=== PATIENT | male | born 1955 | race Caucasian/White ===

== ENCOUNTER 2020-01-24 11:45 | Outpatient (CLI) | payer OTHER, SELFPAY ==
[2020-01-24 17:33] LABS: Basophils # 0.1 10^3/uL (0.0-0.1); Basophils % 1.6 %; Eosinophils # 0.2 10^3/uL (0.0-0.8); Eosinophils % 2.5 %; Hemoglobin 13.4 g/dL (11.7-16.6); Lymphocytes # 1.5 10^3/uL (0.8-4.8); Lymphocytes % 23.8 %; Mean Corpuscular HGB Conc 31.9 g/dL (30.0-36.0); Mean Corpuscular Hemoglobin 27.8 pg (28.0-34.0); Mean Corpuscular Volume 87.1 fL (80-94); Mean Platelet Volume 9.5 fL (7.4-10.4); Monocytes # 0.5 10^3/uL (0.2-0.9); Monocytes % 7.4 %; Neutrophils # 4.1 10^3/uL (1.8-7.7); Neutrophils % 63.8 %; Nucleated Red Blood Cells % 0 %; Platelet Count 769 10^3/cmm (130-400); Red Blood Count 4.82 10^6/uL (4.1-5.3); Red Cell Distribution Width 13.2 % (12.1-15.1); White Blood Count 6.4 10^3/uL (4.0-10.0)
[2020-01-24 19:38] LABS: Alanine Aminotransferase 9 U/L (0-41); Albumin Level 4.3 g/dL (3.5-5.2); Alkaline Phosphatase 79 IU/L (40-130); Anion Gap 16.9 (5-19); Aspartate Amino Transferase 23 U/L (0-40); Blood Urea Nitrogen 17 mg/dL (8-23); Calcium 8.7 mg/dL (8.5-10.5); Carbon Dioxide 26 mmol/L (22-29); Chloride 103 mmol/L (98-107); Globulin 2.3 g/dL (1.3-4.6); Glucose 67 mg/dL (65-115); Osmolality Calculated 289 mOsm/kg (285-295); Potassium 3.9 mmol/L (3.5-5.1); Sodium 142 mmol/L (136-145); Total Bilirubin 0.3 mg/dL (0.15-1.2); Total Protein 6.6 g/dL (6.6-8.7)
== END 2020-01-24 11:46 | disposition home or self-care (01) ==
LOC: ONCMED 16:50
PROVIDERS: Family Provider Internal Medicine; PCP Internal Medicine; Visit Provider Internal Medicine Medical Oncology
DX: C67.8 Malignant neoplasm of overlapping sites of bladder (principal)
CPT/HCPCS: 80053; 85025

== ENCOUNTER 2020-02-13 08:48 | Outpatient (CLI) | payer OTHER, SELFPAY ==
--- NOTE | 2020-02-13 09:41 | CT_ITS ---
WS: [id number] CT CHEST, ABDOMEN, AND PELVIS TECHNIQUE: Contrast-enhanced CT of the chest, abdomen, and pelvis with coronal and sagittal reformatt ed images. CLINICAL INFORMATION: BLADDER CA COMPARISON: CT abdomen pelvis 07/07/2019 and 12/20/2018 DLP: 2385.[address] scans at [facility] use at least one of these dose optimization techniques: automat ed exposure control; mA and/or kV adjustment per patient size (includes targeted exams where dose is matched to clinical indication); or iterative reconstruction. CT CHEST: Normal caliber thoracic aorta. No mediastinal or hilar lymphadenopathy. Normal endobronchial tree. No suspicious parenchymal abnormalities. Lungs well aerated. No acute pulmonary infiltrates. No axillar y lymphadenopathy. Partially calcified soft tissue lesion in the left lower back posterior laterally measuring 2.7 CM. This most likely represents chronic incidental sebaceous cyst. CT ABDOMEN AND PELVIS: Prior postoperative changes radical cystoprostatectomy with ileal conduit. Liver is normal in appeara nce. Normal gallbladder. Normal spleen. Pancreas appears normal. Adrenal glands appear normal. Incide ntal left renal cysts. Stable 16 mm right renal cortical lesion is unchanged and indeterminant with i ncreased attenuation. Additional incidental stable renal cysts. Normal caliber abdominal aorta. Adren al glands are normal. Pancreas is normal. No periaortic or peritoneal lymphadenopathy. Small right common iliac artery aneurysm measuring 2.1 cm unchanged. Normal caliber abdominal aorta. CT/CT chest abd pel w con* IMPRESSION: 1. No adenopathy in the chest abdomen or pelvis. 2. No suspicious parenchymal abnormalities in the chest. 3. Prior postoperative changes radical cystoprostatectomy with ileal conduit i s stable in appearance. 4. Stable indeterminant exophytic right renal lesion measuring 16 mm with incr eased attenuation. Recommend continued surveillance. 5. Incidental stable hepatic and renal cysts. 6. Stable 2.2 cm right common iliac artery aneurysm.
[2020-02-13] MEDS: iohexol 300 mg/mL 50 mL Btl PO (10:35)
[2020-02-13] MEDS: iohexol 300 mg/mL 100 mL Btl IV (10:51)
== END 2020-02-13 08:49 | disposition home or self-care (01) ==
LOC: RADWPI 08:49
PROVIDERS: Family Provider Internal Medicine; PCP Internal Medicine; Visit Provider Internal Medicine Medical Oncology
DX: C67.9 Malignant neoplasm of bladder, unspecified (principal); I72.3 Aneurysm of iliac artery; N28.9 Disorder of kidney and ureter, unspecified; N28.1 Cyst of kidney, acquired; K76.89 Other specified diseases of liver
CPT/HCPCS: 71260; 74177; Q9967

== ENCOUNTER 2020-02-15 15:37 | Outpatient (CLI) | payer OTHER, SELFPAY ==
--- NOTE | 2020-02-17 12:25 | ONC FU_ITS ---
Dr. Parada Patient Follow-Up Note Patient: Tejinder Crook Unit #: [id number]: 1955 Dicatated By: Dale Parada M.D.Date of Visit:February 15, 2020 Onc Med Follow-up/Prog Note Chief Complaint: Bladder cancer. 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 He had been seen by Dr. Reddy in May 2018 after having 2 episodes of gross hematuria. His outpatient cystoscopy was suspicious for neoplasm. He then underwent cystoscopy with TURBT on 06/20/2018. He was found to have tumor in the posterolateral bladder wall, but most of the tumor appeared to be involving a bladder diverticulum. Pathology showed high grade urothelial carcinoma with invasion of the submucosa. There was no evidence of invasion into a small amount of muscularis propria included in the specimen. It was noted by Dr. Reddy that his CT scan appeared to show nodularity extending outside the diverticulum. On 08/04/2018 he underwent repeat cystoscopy for further biopsies of the tumor. Pathology showed grade 4//4 papillary carcinoma with invasion into the muscularis propria. I had seen him initially on 09/09/2018. Subsequent to that visit, he had further urology consultation with Dr. Huey Brown at the [facility]. He was recommended to undergo neoadjuvant chemotherapy with modified MVAC in preparation for radical cystectomy. He proceeded with cycle 1 of modified MVAC on 11/14/2018, with cycle 2 on 11/29/2018, and with cycle 3 on 12/12/2018. On 01/17/2019 he underwent radical cystoprostatectomy with ileal loop at the [facility]. According to Dr. Reddy's note, there was no residual tumor identified. His postoperative course was complicated by clostridium difficile colitis, but he did have gradual recovery. He was then followed on observation/expectant management. His other medical illnesses include hypertension, GERD, and obstructive sleep apnea. He also has a history of adjustment disorder. He has a history of smoking 1 pack of cigarettes daily for 15 year. He quit smoking 27 years ago. He had heavy alcohol use in the range of 30 years ago, but he subsequently cut down and he quit drinking at least 4-5 years ago. INTERIM HISTORY: Surveillance CT of the abdomen/pelvis on 07/07/2019 showed interval changes related to the cystoprostatectomy with ileal loop. There were 2 low-attenuation masses arising from the cortex of the right kidney, the largest measuring 16 mm. There were several associated low-attenuation nodules in the left kidney, largest measuring 12 mm. There was no evidence for recurrence of the urothelial cancer. Surveillance CT scans on 02/13/2020 showed no adenopathy or other evidence of recurrent/metastatic disease in the chest, abdomen, or pelvis. An indeterminate exophytic right renal lesion measuring 16 mm appeared stable. Continued surveillance was recommended. 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 He is seen for a followup visit. He has been feeling all right. He says his energy is just mediocre. He is doing light work. ECOG score is 1. He has good appetite. He has not had fever. He has sweating every night, but that is chronic. He has no shortness of breath, cough, or chest pain. He has no GI complaints. His urostomy is functioning well and his urine looks clear. He has some age-related joint pain, which is unchanged. He has occasional headache. He reports having some numbness/tingling in his hands. Medications: Dana Allergy 1 Tablet (of 180 mg) Oral daily PRN, AmLODIPine Besylate 1 Tablet (of 10 mg) Oral daily, Aspirin 1 Tablet (of 81 mg) Oral daily, Calcium + D3 1 Tablet (of 600-200 mg - Units) Oral daily, Pantoprazole Sodium 1 Tablet (of 40 mg) Tablet, enteric coated Oral daily, Vitamin C 1 Capsule (of 500 mg) Oral daily, Vitamin E 1 Capsule (of 100 Units) Oral daily Allergies: bee stings Review of Systems: Constitutional - He is generally feeling good. He does work in and around the house. His appetite is good and weight is stable. No fever, chills or hot flashes. He has night sweats. ECOG score is 1, ENMT - No sinus congestion/drainage. No mouth sores. No sore throat or difficulty swallowing, Hematologic/Lymphatic - He bruises easily, Respiratory - No shortness of breath. No cough. No pleuritic pain or hemoptysis, Cardiovascular - No angina pain. No palpitations, Gastrointestinal - No nausea or vomiting. His heartburn is well managed with Pepcid. No diarrhea or constipation. No blood in the stool or black stools, Genitourinary (M) - He has a urostomy which is functioning well, Musculoskeletal - No joint or bone pain, Integumentary - No skin complications, Neurologic - No headache or dizziness. He has chronic numbness in his right fingers, Psychiatric - No anxiety or depression. No insomnia. Vital Signs: Performed on February 15, 2020 16:00 Height - 68.00 in Weight - 193.8 lbs (HIGH) BSA - 2.02 sq.m BMI - 29.47 Temperature - 98.6 F Pulse - 77 /min Respiration - 22 /min BP - 120/85 mm(hg) O2 Sat - 97 % Pain - 0 Physical Examination: Constitutional - He looks good generally, Eyes - Sclerae nonicteric. Conjunctivae clear, ENMT - No lesions noted in the oral cavity, Hematologic/Lymphatic - No cervical, clavicular, or axillary adenopathy, Respiratory - Lungs are clear, Cardiovascular - Heart rhythm is regular. There is no murmur, gallop, or rub noted, Abdomen - Soft. Liver and spleen are not enlarged. There is no abdominal mass or ascites noted and there is no inguinal adenopathy, Extremities - No edema, Neurologic - No focal neurologic deficits noted. Lab/Imaging: Test performed on January 24, 2020 11:45 Sodium 142 mmol/L Potassium 3.9 mmol/L Chloride 103 mmol/L CO2 26 mmol/L Anion Gap 16.9 BUN 17 mg/dL Creatinine 1.2 mg/dL Cr Clearance (Est) 77.5700 mL/min eGFR 61.0 mL/min Glucose 67 mg/dL Calcium 8.7 mg/dL Protein, Total 6.6 g/dL Albumin 4.3 g/dL Globulin 2.3 g/dL Bilirubin, Total 0.3 mg/dL ALT (SGPT) 9 U/L AST (SGOT) 23 U/L Alkaline Phosphatase 79 IU/L WBC 6.4 10 3/uL RBC 4.82 10 6/uL HGB 13.4 g/dL HCT 42.0 % MCV 87.1 fL MCH 27.8 pg MCHC 31.9 g/dL RDW 13.2 % Platelet Count 769 10 3/cmm MPV 9.5 fL Neutrophils 4.1 10 3/uL Lymphocytes 1.5 10 3/uL Monocytes 0.5 10 3/uL Eosinophils 0.2 10 3/uL Basophils 0.1 10 3/uL Neutrophil % 63.8 % Lymphocyte % 23.8 % Monocyte % 7.4 % Eosinophil % 2.5 % Basophils % 1.6 % Impression: 1. 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 The majority of his tumor appeared to be involving a bladder diverticulum, and the CT scan reportedly showed findings suspicious for nodularity outside the diverticulum. 2. He underwent cystoscopy with TURBT on 06/20/2018 and on 08/04/2018. His other medical illnesses include: 3. Hypertension. 4. GERD. 5. Obstructive sleep apnea. 6. Adjustment disorder. He was seen by Dr. Huey Brown at the [facility], and he was recommended to undergo neoadjuvant chemotherapy with modified MVAC in preparation for radical cystectomy. He proceeded with cycle 1 of modified MVAC on 11/14/2018, with cycle 2 on 11/29/2018, and with cycle 3 on 12/12/2018. He tolerated the chemotherapy well. On 01/17/2019 he underwent radical cystoprostatectomy with ileal loop at the [facility]. According to Dr. Reddy's note, there was no residual tumor identified. His postoperative course was complicated by clostridium difficile colitis, but he did have gradual recovery. He was then followed on observation/expectant management. During followup he has continued to have some fatigue, but he is otherwise doing well clinically. Thus far there has been no evidence of recurrence of the urothelial cancer. Plan: He remains on observation/expectant management for the bladder cancer. I will see him again with surveillance CT scans in 6 months. Signed By: Dale Parada M.D. <<Signature on File>>
== END 2020-02-15 15:38 | disposition home or self-care (01) ==
LOC: ONCMED 15:40
PROVIDERS: PCP Internal Medicine; Visit Provider Internal Medicine Medical Oncology
DX: Z08 Encounter for follow-up examination after completed treatment for malignant neoplasm (principal); Z85.51 Personal history of malignant neoplasm of bladder; I10 Essential (primary) hypertension; K21.9 Gastro-esophageal reflux disease without esophagitis; G47.33 Obstructive sleep apnea (adult) (pediatric); F43.20 Adjustment disorder, unspecified; Z92.21 Personal history of antineoplastic chemotherapy; Z90.6 Acquired absence of other parts of urinary tract; Z90.79 Acquired absence of other genital organ(s)
CPT/HCPCS: G0463

== ENCOUNTER 2020-03-06 08:36 | Outpatient (CLI) | payer OTHER, SELFPAY ==
--- NOTE | 2020-03-06 09:19 | XR_ITS ---
WS: [id number] XR chest 2V* [id number] REASON FOR EXAM: bladder cancer FINDINGS: Scoliotic curve convex to the right is seen. The heart and mediastinal interfaces are normal. The lung alba show no pneumonia, pleural effusion, pulmonary edema, or mass effect. The hilum and apices are normal. Comparison to July 19, 2019 with no interval changes. XR/XR chest 2V* [id number] IMPRESSION: Negative chest for acute pathology.
== END 2020-03-06 08:37 | disposition home or self-care (01) ==
LOC: RAD 09:08
PROVIDERS: PCP Internal Medicine; Visit Provider Urology
DX: C67.9 Malignant neoplasm of bladder, unspecified (principal)
CPT/HCPCS: 71046

== ENCOUNTER 2020-08-22 13:13 | Outpatient (CLI) | payer OTHER, SELFPAY ==
--- NOTE | 2020-08-22 | CT_ITS ---
WS: [id number] CT CHEST, ABDOMEN, AND PELVIS TECHNIQUE: Contrast-enhanced CT of the chest, abdomen, and pelvis with coronal and sagittal reformatt ed images. CLINICAL INFORMATION: BLADDER CANCER COMPARISON: CT February 13, 2020 DLP: 1523.[address] scans at [facility] use at least one of these dose optimization techniques: automat ed exposure control; mA and/or kV adjustment per patient size (includes targeted exams where dose is matched to clinical indication); or iterative reconstruction. CT CHEST: Normal caliber thoracic aorta. Proximal main pulmonary arteries are normal. No mediastinal or hilar l ymphadenopathy. Normal endobronchial tree. No suspicious intraparenchymal abnormalities. No acute pul monary infiltrates. No axillary lymphadenopathy. Partially calcified soft tissue lesion in the left l ower back posterior laterally measuring 2.7 CM likely sebaceous cyst. CT ABDOMEN AND PELVIS: Prior postoperative changes radical cystoprostatectomy with ileal conduit. Liver is normal in appeara nce. Normal gallbladder. Normal spleen. Pancreas appears normal. Adrenal glands appear normal. Incide ntal left renal cysts. Stable 16 mm right renal exophytic cortical lesion is unchanged and indeterminant with increased atte nuation. Additional incidental stable renal cysts. Normal caliber abdominal aorta. Adrenal glands are normal. Pancreas is normal. No periaortic or retroperitoneal lymphadenopathy. Small right common wes ac artery aneurysm measuring 2.1 cm unchanged. Normal caliber abdominal aorta. CT/CT chest abd pel w con* IMPRESSION: 1. No evidence of metastatic disease in the chest abdomen or pelvis. 2. No adenopathy in the chest abdomen or pelvis. 3. No suspicious intraparenchymal pulmonary abnormalities. 4. Stable prior postoperative changes radical cystoprostatectomy with ileal co nduit. 5. Unchanged 16mm exophytic right renal lesion with increased attenuation. Rec ommend continued annual surveillance. 6. Stable 2.2 cm right common iliac artery aneurysm. 7. Unchanged hepatic and renal cysts.
[2020-08-22 14:30] LABS: Basophils # 0.1 10^3/uL (0.0-0.1); Basophils % 1.6 %; Eosinophils # 0.2 10^3/uL (0.0-0.8); Eosinophils % 2.9 %; Hematocrit 41.1 % (42.0-52.0); Hemoglobin 12.9 g/dL (11.7-16.6); Lymphocytes # 1.5 10^3/uL (0.8-4.8); Lymphocytes % 20.4 %; Mean Corpuscular HGB Conc 31.4 g/dL (30.0-36.0); Mean Corpuscular Hemoglobin 26.3 pg (28.0-34.0); Mean Corpuscular Volume 83.9 fL (80-94); Mean Platelet Volume 9.5 fL (7.4-10.4); Monocytes # 0.6 10^3/uL (0.2-0.9); Monocytes % 7.9 %; Neutrophils % 66.8 %; Nucleated Red Blood Cells % 0 %; Platelet Count 875 10^3/cmm (130-400); Red Cell Distribution Width 14.1 % (12.1-15.1); White Blood Count 7.3 10^3/uL (4.0-10.0)
[2020-08-22 14:36] LABS: Alanine Aminotransferase 25 U/L (0-41); Albumin Level 4.5 g/dL (3.5-5.2); Alkaline Phosphatase 98 IU/L (40-130); Aspartate Amino Transferase 22 U/L (0-40); Blood Urea Nitrogen 17 mg/dL (8-23); Calcium 9.1 mg/dL (8.5-10.5); Carbon Dioxide 25 mmol/L (22-29); Chloride 106 mmol/L (98-107); Globulin 2.4 g/dL (1.3-4.6); Glomerular Filtration Rate 67.2 mL/min (90-130); Glucose 106 mg/dL (65-115); Osmolality Calculated 294 mOsm/kg (285-295); Sodium 141 mmol/L (136-145); Total Bilirubin 0.5 mg/dL (0.15-1.2); Total Protein 6.9 g/dL (6.6-8.7)
[2020-08-22] MEDS: iohexol 300 mg/mL 100 mL Btl IV (15:15)
== END 2020-08-22 13:14 | disposition home or self-care (01) ==
PROVIDERS: PCP Internal Medicine; Visit Provider Internal Medicine Medical Oncology
DX: C67.8 Malignant neoplasm of overlapping sites of bladder (principal); K76.89 Other specified diseases of liver; N28.1 Cyst of kidney, acquired; I72.3 Aneurysm of iliac artery
CPT/HCPCS: 71260; 74177; 80053; 85025

== ENCOUNTER 2020-10-09 13:57 | Outpatient (CLI) | payer OTHER, SELFPAY ==
[2020-10-09 14:29] LABS: Basophils # 0.2 10^3/uL (0.0-0.1); Basophils % 1.8 %; Eosinophils # 0.2 10^3/uL (0.0-0.8); Eosinophils % 2.3 %; Hematocrit 42.7 % (42.0-52.0); Hemoglobin 13.7 g/dL (11.7-16.6); Lymphocytes # 1.8 10^3/uL (0.8-4.8); Lymphocytes % 22.3 %; Mean Corpuscular HGB Conc 32.1 g/dL (30.0-36.0); Mean Corpuscular Hemoglobin 26.4 pg (28.0-34.0); Mean Corpuscular Volume 82.3 fL (80-94); Mean Platelet Volume 9.4 fL (7.4-10.4); Monocytes # 0.6 10^3/uL (0.2-0.9); Monocytes % 7.6 %; Neutrophils # 5.34 10^3/uL (1.8-7.7); Neutrophils % 65.5 %; Nucleated Red Blood Cells % 0 %; Platelet Count 876 10^3/cmm (130-400); Red Blood Count 5.19 10^6/uL (4.1-5.3); Red Cell Distribution Width 14.6 % (12.1-15.1); White Blood Count 8.2 10^3/uL (4.0-10.0)
[2020-10-09 15:56] LABS: Alanine Aminotransferase 21 U/L (0-41); Albumin Level 4.2 g/dL (3.5-5.2); Alkaline Phosphatase 86 IU/L (40-130); Anion Gap 12.9 (5-19); Aspartate Amino Transferase 23 U/L (0-40); Blood Urea Nitrogen 20 mg/dL (8-23); Calcium 9.1 mg/dL (8.5-10.5); Carbon Dioxide 25 mmol/L (22-29); Chloride 104 mmol/L (98-107); Globulin 2.6 g/dL (1.3-4.6); Glomerular Filtration Rate 67.2 mL/min (90-130); Glucose 96 mg/dL (65-115); Osmolality Calculated 288 mOsm/kg (285-295); Potassium 3.9 mmol/L (3.5-5.1); Sodium 138 mmol/L (136-145); Total Bilirubin 0.3 mg/dL (0.15-1.2); Total Protein 6.8 g/dL (6.6-8.7)
--- NOTE | 2020-10-13 13:09 | ONC FU_ITS ---
Dr. Parada Patient Follow-Up Note Patient: Tejinder Crook Unit #: [id number]: 1955 Dicatated By: Dale Parada M.D.Date of Visit:Oct 09, 2020 Onc Med Follow-up/Prog Note Chief Complaint: Bladder cancer. 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 He had been seen by Dr. Reddy in May 2018 after having 2 episodes of gross hematuria. His outpatient cystoscopy was suspicious for neoplasm. He then underwent cystoscopy with TURBT on 06/20/2018. He was found to have tumor in the posterolateral bladder wall, but most of the tumor appeared to be involving a bladder diverticulum. Pathology showed high grade urothelial carcinoma with invasion of the submucosa. There was no evidence of invasion into a small amount of muscularis propria included in the specimen. It was noted by Dr. Reddy that his CT scan appeared to show nodularity extending outside the diverticulum. On 08/04/2018 he underwent repeat cystoscopy for further biopsies of the tumor. Pathology showed grade 4//4 papillary carcinoma with invasion into the muscularis propria. I had seen him initially on 09/09/2018. Subsequent to that visit, he had further urology consultation with Dr. Huey Brown at the [facility]. He was recommended to undergo neoadjuvant chemotherapy with modified MVAC in preparation for radical cystectomy. He proceeded with cycle 1 of modified MVAC on 11/14/2018, with cycle 2 on 11/29/2018, and with cycle 3 on 12/12/2018. On 01/17/2019 he underwent radical cystoprostatectomy with ileal loop at the [facility]. According to Dr. Reddy's note, there was no residual tumor identified. His postoperative course was complicated by clostridium difficile colitis, but he did have gradual recovery. He was then followed on observation/expectant management. His other medical illnesses include hypertension, GERD, and obstructive sleep apnea. He also has a history of adjustment disorder. He has a history of smoking 1 pack of cigarettes daily for 15 year. He quit smoking 27 years ago. He had heavy alcohol use in the range of 30 years ago, but he subsequently cut down and he quit drinking at least 4-5 years ago. INTERIM HISTORY: CT of the abdomen/pelvis on 07/07/2019 showed interval changes related to the cystoprostatectomy with ileal loop. There were 2 low-attenuation masses arising from the cortex of the right kidney, the largest measuring 16 mm. There were several associated low-attenuation nodules in the left kidney, largest measuring 12 mm. There was no evidence for recurrence of the urothelial cancer. His CT scans on 02/13/2020 showed no adenopathy or other evidence of recurrent/metastatic disease in the chest, abdomen, or pelvis. An indeterminate exophytic right renal lesion measuring 16 mm appeared stable. Continued surveillance was recommended. 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 Surveillance CT scans on 08/22/2020 no evidence of metastatic disease in the chest abdomen or pelvis. A 16mm exophytic right renal lesion with increased attenuation appeared unchanged, continued surveillance recommended. A 2.2 cm right common iliac artery aneurysm appeared stable. He is seen for a followup visit. He has been feeling good generally, though his energy is just fair. His ECOG score is 1. Appetite is OK. He has not had fever. He has night sweating, that has been going on all his life. He has no shortness of breath, cough, or chest pain. He colonel he has no GI complaints. He has had no problems with his urostomy. For the past month he has been having some pain in his right lower back, but he thinks it is just due to stressed muscles. He does not complain of headache or dizziness. He has numbness in the median nerve distribution of the right hand. He has no other focal neurologic symptoms. Medications: Dana Allergy 1 Tablet (of 180 mg) Oral daily PRN, AmLODIPine Besylate 1 Tablet (of 10 mg) Oral daily, Aspirin 1 Tablet (of 81 mg) Oral daily, Calcium + D3 1 Tablet (of 600-200 mg - Units) Oral daily, Pantoprazole Sodium 1 Tablet (of 40 mg) Tablet, enteric coated Oral daily, Rosuvastatin Calcium 1 (40 mg) Tablet Oral at bedtime, Vitamin C 1 Capsule (of 500 mg) Oral daily, Vitamin E 1 Capsule (of 100 Units) Oral daily Allergies: bee stings Vital Signs: Performed on Oct 09, 2020 15:19 Height - 68.00 in Weight - 197.6 lbs (HIGH) BSA - 2.03 sq.m BMI - 30.05 (HIGH) Temperature - 98.0 F (LOW) Pulse - 76 /min Respiration - 16 /min BP - 125/84 mm(hg) O2 Sat - 96 % Pain - 0 Physical Examination: Constitutional - He looks good generally, Eyes - Sclerae nonicteric. Conjunctivae clear, ENMT - No lesions noted in the oral cavity, Hematologic/Lymphatic - No cervical, clavicular, or axillary adenopathy, Respiratory - Lungs are clear, Cardiovascular - Heart rhythm is regular. There is no murmur, gallop, or rub noted, Abdomen - Soft. Liver and spleen are not enlarged. There is no abdominal mass or ascites noted and there is no inguinal adenopathy, Extremities - No edema, Integumentary - There is a palpable cyst in the left mid to lower back laterally, measuring in the range of 3 cm, Neurologic - No focal neurologic deficits noted. Lab/Imaging: Test performed on Oct 09, 2020 14:10 Sodium 138 mmol/L Potassium 3.9 mmol/L Chloride 104 mmol/L CO2 25 mmol/L Anion Gap 12.9 BUN 20 mg/dL Creatinine 1.1 mg/dL Cr Clearance (Est) 83.5000 mL/min eGFR 67.2 mL/min Glucose 96 mg/dL Osmolality - Calculated 288 mOsm/kg Calcium 9.1 mg/dL Protein, Total 6.8 g/dL Albumin 4.2 g/dL Globulin 2.6 g/dL Bilirubin, Total 0.3 mg/dL ALT (SGPT) 21 U/L AST (SGOT) 23 U/L Alkaline Phosphatase 86 IU/L WBC 8.2 10 3/uL RBC 5.19 10 6/uL HGB 13.7 g/dL HCT 42.7 % MCV 82.3 fL MCH 26.4 pg MCHC 32.1 g/dL RDW 14.6 % Platelet Count 876 10 3/cmm MPV 9.4 fL Neutrophils 5.34 10 3/uL Lymphocytes 1.8 10 3/uL Monocytes 0.6 10 3/uL Eosinophils 0.2 10 3/uL Basophils 0.2 10 3/uL Neutrophil % 65.5 % Lymphocyte % 22.3 % Monocyte % 7.6 % Eosinophil % 2.3 % Basophils % 1.8 % NRBC % 0 % Problem List: 1. Grade 4/4 papillary carcinoma of the bladder, stage at least pT2a. The majority of his tumor appeared to be involving a bladder diverticulum, but his intitial CT scan reportedly showed findings suspicious for nodularity outside the diverticulum. He underwent cystoscopy with TURBT on 06/20/2018 and on 08/04/2018. 2. He was given neoadjuvant MVAC chemotherapy followed by radical cystoprostatectomy with ileal loop on 01/17/2019. Pathology reportedly showed no residual tumor. 3. His postoperative course was complicated by C. difficile colitis. 4. Hypertension. 5. GERD. 6. Obstructive sleep apnea. 7. Adjustment disorder. Problems Addressed with this Encounter and Plan: Grade 4/4 papillary carcinoma of the bladder, stage at least pT2a. He was given neoadjuvant chemotherapy with 3 cycles of modified MVAC, completed in November 2018. On 01/17/2019 he underwent radical cystoprostatectomy with ileal loop at the [facility]. Pathology reportedly showed no residual tumor. He has since then been followed on observation/expectant management. Overall, he appears to be doing well. During the past month he has had some back pain. There has been no evidence, though, of recurrence of the urothelial cancer. He remains on observation/expectant management. He will be scheduled for follow-up visit with surveillance CT scans in 6 months. In the meantime, he is to let us know if his back pain is getting worse. Signed By: Dale Parada M.D. <<Signature on File>>
== END 2020-10-09 13:58 | disposition home or self-care (01) ==
LOC: ONCMED 13:58
PROVIDERS: PCP Family Medicine; Visit Provider Internal Medicine Medical Oncology
DX: C67.8 Malignant neoplasm of overlapping sites of bladder (principal); Z79.899 Other long term (current) drug therapy; Z90.6 Acquired absence of other parts of urinary tract; Z90.79 Acquired absence of other genital organ(s); I10 Essential (primary) hypertension; K21.9 Gastro-esophageal reflux disease without esophagitis; G47.33 Obstructive sleep apnea (adult) (pediatric)
CPT/HCPCS: 36415; 80053; 85025; G0463

== ENCOUNTER 2021-04-24 10:02 | Outpatient (CLI) | payer OTHER, SELFPAY ==
[2021-04-24 11:10] LABS: Basophils # 0.1 10^3/uL (0.0-0.1); Basophils % 1.8 %; Eosinophils # 0.2 10^3/uL (0.0-0.8); Eosinophils % 3.4 %; Hematocrit 41.9 % (42.0-52.0); Hemoglobin 13.4 g/dL (11.7-16.6); Lymphocytes # 1.4 10^3/uL (0.8-4.8); Lymphocytes % 20.1 %; Mean Corpuscular Hemoglobin 27.4 pg (28.0-34.0); Mean Corpuscular Volume 85.7 fL (80-94); Mean Platelet Volume 9.5 fL (7.4-10.4); Monocytes # 0.6 10^3/uL (0.2-0.9); Monocytes % 8.7 %; Neutrophils # 4.57 10^3/uL (1.8-7.7); Neutrophils % 64.9 %; Nucleated Red Blood Cells % 0 %; Platelet Count 728 10^3/cmm (130-400); Red Blood Count 4.89 10^6/uL (4.1-5.3); Red Cell Distribution Width 15.1 % (12.1-15.1); White Blood Count 7.1 10^3/uL (4.0-10.0)
--- NOTE | 2021-04-24 11:19 | CT_ITS ---
WS: [id number] CT CHEST, ABDOMEN AND PELVIS WITH CONTRAST HISTORY: BLADDER CANCER TECHNIQUE: Contiguous 5 mm axial imaging performed through the chest, abdomen and pelvis with IV cont rast, oral contrast has been provided. Coronal and sagittal reformats chest. Coronal and sagittal ref ormats through the abdomen and pelvis. All CT scans at [facility] use at least one of the se dose optimization techniques: automated exposure control; mA and/or kV adjustment per patient size (includes targeted exams where dose is matched to clinical indication); or iterative reconstruction. CONTRAST: Omnipaque 300; 95 mL IV. DLP: 1607.94 mGy.cm COMPARISON: 08/22/[address]: No pulmonary mass or nodule. No adenopathy. Heart size is normal. Normal aorta and pulmonar y artery. No pericardial pleural effusions. Small hiatal hernia. Well-rounded subcutaneous soft tissu e mass posterior to the LEFT scapula measures 2.7 x 3.1 cm. This is likely a sebaceous cyst and stabl e. Stable sclerotic focus in the L1 vertebral body. Abdomen CT: 2 hepatic cysts are stable. The largest along the anterior surface of the liver is 13 mm. There is an additional cyst posterior to the main portal vein. No metastatic disease. Gallbladder, p ancreas and spleen and adrenal glands are negative. Cortical thinning upper pole RIGHT kidney. Stable cortical cyst anteriorly. There is a solid slightly lobulated mass extending laterally from the mid kidney with a maximum diameter of 18 mm. This mass h as slowly increased in size over the past several studies and is more lobulated. LEFT kidney normal size with a few cortical cysts and focal area of scarring in the lower pole. RIGHT lower quadrant ileostomy. Patient is status post radical cystoprostatectomy with ileal conduit. Pelvic CT: No ascites or free fluid in the pelvis. Postsurgical changes are noted. There are a few ve ry small stable lymph nodes in the inguinal region. Again noted is mild dilatation of the proximal RI GHT common iliac artery measuring 1.8 cm. No destructive osteoblastic or osteolytic lesions. Scleroti c bone island in the RIGHT femoral head. CT/CT chest abd pel w con* IMPRESSION: 1. No evidence for metastatic disease to the chest, abdomen or pelvis. 2. Solid lobulated mass from mid lateral RIGHT kidney has slowly increased in size. This is not a simple cyst. Early renal cell neoplasm should be considered . Recommend continued surveillance. 3. Status post cystoprostatectomy with ileal conduit. No renal obstruction. 4. Small hiatal hernia. 5. Bilateral renal cysts with cortical thinning upper pole on the RIGHT and lo wer pole on the LEFT.
[2021-04-24] MEDS: iohexol 300 mg/mL 50 mL Btl PO (11:41)
[2021-04-24 11:49] LABS: Alanine Aminotransferase 11 U/L (0-41); Alkaline Phosphatase 63 IU/L (40-130); Anion Gap 12.8 (5-19); Aspartate Amino Transferase 16 U/L (0-40); Blood Urea Nitrogen 15 mg/dL (8-23); Calcium 8.4 mg/dL (8.5-10.5); Carbon Dioxide 25 mmol/L (22-29); Chloride 107 mmol/L (98-107); Globulin 2.3 g/dL (1.3-4.6); Glomerular Filtration Rate 84.7 mL/min (90-130); Glucose 86 mg/dL (65-115); Osmolality Calculated 292 mOsm/kg (285-295); Potassium 3.8 mmol/L (3.5-5.1); Sodium 141 mmol/L (136-145); Total Bilirubin 0.4 mg/dL (0.15-1.2); Total Protein 6.3 g/dL (6.6-8.7)
[2021-04-24] MEDS: iohexol 300 mg/mL 100 mL Btl IV (13:05)
== END 2021-04-24 10:03 | disposition home or self-care (01) ==
LOC: ONCMED 10:04
PROVIDERS: PCP Family Medicine; Visit Provider Internal Medicine Medical Oncology
DX: C67.8 Malignant neoplasm of overlapping sites of bladder (principal); K44.9 Diaphragmatic hernia without obstruction or gangrene; N28.1 Cyst of kidney, acquired; Z79.899 Other long term (current) drug therapy
CPT/HCPCS: 71260; 74177; 80053; 85025; Q9967

== ENCOUNTER 2021-05-28 11:57 | Outpatient (CLI) | payer OTHER, SELFPAY ==
[2021-05-28 12:30] LABS: Basophils # 0.2 10^3/uL (0.0-0.1); Basophils % 1.8 %; Eosinophils # 0.2 10^3/uL (0.0-0.8); Eosinophils % 2.8 %; Hemoglobin 13.6 g/dL (11.7-16.6); Lymphocytes # 1.4 10^3/uL (0.8-4.8); Lymphocytes % 16.9 %; Mean Corpuscular HGB Conc 33.2 g/dL (30.0-36.0); Mean Corpuscular Hemoglobin 28.2 pg (28.0-34.0); Mean Corpuscular Volume 84.9 fl (80-94); Mean Platelet Volume 9.6 fL (7.4-10.4); Monocytes # 0.7 10^3/uL (0.2-0.9); Monocytes % 8.8 %; Neutrophils # 5.76 10^3/uL (1.8-7.7); Nucleated Red Blood Cells % 0 %; Platelet Count 755 10^3/cmm (130-400); Red Blood Count 4.83 10^6/uL (4.1-5.3); Red Cell Distribution Width 14.9 % (12.1-15.1); White Blood Count 8.3 10^3/uL (4.0-10.0)
[2021-05-28 13:12] LABS: Alanine Aminotransferase 21 U/L (0-41); Albumin Level 4.1 g/dL (3.5-5.2); Alkaline Phosphatase 81 IU/L (40-130); Anion Gap 17.9 (5-19); Aspartate Amino Transferase 22 U/L (0-40); Blood Urea Nitrogen 13 mg/dL (8-23); Carbon Dioxide 22 mmol/L (22-29); Chloride 107 mmol/L (98-107); Globulin 2.8 g/dL (1.3-4.6); Glomerular Filtration Rate 84.7 mL/min (90-130); Glucose 94 mg/dL (65-115); Osmolality Calculated 296 mOsm/kg (285-295); Potassium 3.9 mmol/L (3.5-5.1); Sodium 143 mmol/L (136-145); Total Bilirubin 0.4 mg/dL (0.15-1.2); Total Protein 6.9 g/dL (6.6-8.7)
--- NOTE | 2021-05-28 16:58 | ONC FU_ITS ---
Dr. Parada Patient Follow-Up Note Patient: Tejinder Crook Unit #: [id number]: 1955 Dicatated By: Dale Parada M.D.Date of Visit:May 28, 2021 Onc Med Follow-up/Prog Note Chief Complaint: Bladder cancer. 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 He had been seen by Dr. Reddy in May 2018 after having 2 episodes of gross hematuria. His outpatient cystoscopy was suspicious for neoplasm. He then underwent cystoscopy with TURBT on 06/20/2018. He was found to have tumor in the posterolateral bladder wall, but most of the tumor appeared to be involving a bladder diverticulum. Pathology showed high grade urothelial carcinoma with invasion of the submucosa. There was no evidence of invasion into a small amount of muscularis propria included in the specimen. It was noted by Dr. Reddy that his CT scan appeared to show nodularity extending outside the diverticulum. On 08/04/2018 he underwent repeat cystoscopy for further biopsies of the tumor. Pathology showed grade 4//4 papillary carcinoma with invasion into the muscularis propria. I had seen him initially on 09/09/2018. Subsequent to that visit, he had further urology consultation with Dr. Huey Brown at the [facility]. He was recommended to undergo neoadjuvant chemotherapy with modified MVAC in preparation for radical cystectomy. He proceeded with cycle 1 of modified MVAC on 11/14/2018, with cycle 2 on 11/29/2018, and with cycle 3 on 12/12/2018. On 01/17/2019 he underwent radical cystoprostatectomy with ileal loop at the [facility]. According to Dr. Reddy's note, there was no residual tumor identified. His postoperative course was complicated by clostridium difficile colitis, but he did have gradual recovery. He was then followed on observation/expectant management. His other medical illnesses include hypertension, GERD, and obstructive sleep apnea. He also has a history of adjustment disorder. He has a history of smoking 1 pack of cigarettes daily for 15 year. He quit smoking 27 years ago. He had heavy alcohol use in the range of 30 years ago, but he subsequently cut down and he quit drinking at least 4-5 years ago. INTERIM HISTORY: CT of the abdomen/pelvis on 07/07/2019 showed interval changes related to the cystoprostatectomy with ileal loop. There were 2 low-attenuation masses arising from the cortex of the right kidney, the largest measuring 16 mm. There were several associated low-attenuation nodules in the left kidney, largest measuring 12 mm. There was no evidence for recurrence of the urothelial cancer. His CT scans on 02/13/2020 showed no adenopathy or other evidence of recurrent/metastatic disease in the chest, abdomen, or pelvis. An indeterminate exophytic right renal lesion measuring 16 mm appeared stable. Continued surveillance was recommended. 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 Surveillance CT scans on 08/22/2020 no evidence of metastatic disease in the chest, abdomen, or pelvis. A 16mm exophytic right renal lesion with increased attenuation appeared unchanged, continued surveillance recommended. A 2.2 cm right common iliac artery aneurysm appeared stable. He continues expectant management. Surveillance CT scans on 04/24/2021 showed no evidence for metastatic disease to the chest, abdomen, or pelvis. There was evidence for prior cystoprostatectomy with ileal conduit. The most significant finding was a solid-appearing lobulated mass extending laterally from the mid right kidney which was noted to have slowly increased in size, measuring 18 mm. A well-rounded subcutaneous soft tissue mass posterior to the left scapula measuring 2.7 x 3.1 cm appeared stable and consistent with sebaceous cyst. He is seen for a followup visit. He says his energy is fair. He does tend to wear out pretty fast, but he is doing light work. His ECOG score is 1. He has good appetite. He has not had fever. He reports having sweating all day and all night, but that is chronic. He has some sinus drainage. He has not had sore mouth or throat. He does not complain of shortness of breath, cough, or chest pain. He has no GI complaints. His acid reflux is adequately managed with medication. He has had no problems with his urostomy. He has some joint pain which is normal for his age . He does not complain of headache or dizziness. He has had some numbness in the median nerve distribution bilaterally, but that has been going on for a long time. He has no other focal neurologic symptoms. Medications: Dana Allergy 1 Tablet (of 180 mg) Oral daily PRN, AmLODIPine Besylate 1 Tablet (of 10 mg) Oral daily, Aspirin 1 Tablet (of 81 mg) Oral daily, Calcium + D3 1 Tablet (of 600-200 mg - Units) Oral daily, Pantoprazole Sodium 1 Tablet (of 40 mg) Tablet, enteric coated Oral daily, Rosuvastatin Calcium 1 (40 mg) Tablet Oral at bedtime, Vitamin C 1 Capsule (of 500 mg) Oral daily, Vitamin E 1 Capsule (of 100 Units) Oral daily Allergies: bee stings Vital Signs: Performed on May 28, 2021 14:02 Height - 68.00 in Weight - 201.6 lbs (HIGH) BSA - 2.05 sq.m BMI - 30.65 (HIGH) Temperature - 98.3 F (LOW) Pulse - 83 /min Respiration - 18 /min BP - 122/79 mm(hg) O2 Sat - 96 % Pain - 0 Fatigue - 6 Physical Examination: Constitutional - He looks pretty good generally, Eyes - Sclerae nonicteric. Conjunctivae clear, ENMT - No lesions noted in the oral cavity, Hematologic/Lymphatic - No cervical, clavicular, or axillary adenopathy, Respiratory - Lungs are clear, Cardiovascular - Heart rhythm is regular. There is no murmur, gallop, or rub noted, Abdomen - Soft. The urostomy site is unremarkable. Liver and spleen are not enlarged. There is no abdominal mass or ascites noted and there is no inguinal adenopathy, Extremities - No edema, Neurologic - No focal neurologic deficits noted. Lab/Imaging: Test performed on May 28, 2021 12:20 Sodium 143 mmol/L Potassium 3.9 mmol/L Chloride 107 mmol/L CO2 22 mmol/L Anion Gap 17.9 BUN 13 mg/dL Creatinine 0.9 mg/dL Cr Clearance (Est) 102.0600 mL/min eGFR 84.7 mL/min Glucose 94 mg/dL Osmolality - Calculated 296 mOsm/kg Calcium 9.0 mg/dL Protein, Total 6.9 g/dL Albumin 4.1 g/dL Globulin 2.8 g/dL Bilirubin, Total 0.4 mg/dL ALT (SGPT) 21 U/L AST (SGOT) 22 U/L Alkaline Phosphatase 81 IU/L WBC 8.3 10 3/uL RBC 4.83 10 6/uL HGB 13.6 g/dL HCT 41.0 % MCV 84.9 fl MCH 28.2 pg MCHC 33.2 g/dL RDW 14.9 % Platelet Count 755 10 3/cmm MPV 9.6 fL Neutrophils 5.76 10 3/uL Lymphocytes 1.4 10 3/uL Monocytes 0.7 10 3/uL Eosinophils 0.2 10 3/uL Basophils 0.2 10 3/uL Neutrophil % 69.0 % Lymphocyte % 16.9 % Monocyte % 8.8 % Eosinophil % 2.8 % Basophils % 1.8 % NRBC % 0 % Problem List: 1. Grade 4/4 papillary carcinoma of the bladder, stage at least pT2a. He underwent neoadjuvant chemotherapy followed by radical cystoprostatectomy with ileal loop on 01/17/2019. 3. His postoperative course was complicated by C. difficile colitis. 4. Hypertension. 5. GERD. 6. Obstructive sleep apnea. 7. Adjustment disorder. Problems Addressed with this Encounter and Plan: 1. 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 The majority of his tumor appeared to be involving a bladder diverticulum, but his intitial CT scan reportedly showed findings suspicious for nodularity outside the diverticulum. He underwent cystoscopy with TURBT on 06/20/2018 and on 08/04/2018. He was given neoadjuvant MVAC chemotherapy followed by radical cystoprostatectomy with ileal loop on 01/17/2019. Pathology reportedly showed no residual tumor. He was then followed on expectant management. During follow-up he has been doing pretty well. His overall clinical status remain stable and there has been no evidence of recurrence of the bladder cancer. He remains on expectant management. I will see him again in 6 months. 2. His surveillance CT scan showed a solid lobulated mass extending laterally from the right mid kidney. There was noted to have slowly increased in size, measuring 18 mm. I have been in contact with Dr. Reddy, and he will arrange for further evaluation, as indicated. Signed By: Dale Parada M.D. <<Signature on File>>
== END 2021-05-28 11:58 | disposition home or self-care (01) ==
LOC: ONCMED 12:02
PROVIDERS: PCP Family Medicine; Visit Provider Internal Medicine Medical Oncology
DX: Z08 Encounter for follow-up examination after completed treatment for malignant neoplasm (principal); Z85.51 Personal history of malignant neoplasm of bladder; N28.89 Other specified disorders of kidney and ureter; I10 Essential (primary) hypertension; K21.9 Gastro-esophageal reflux disease without esophagitis; G47.33 Obstructive sleep apnea (adult) (pediatric); F43.20 Adjustment disorder, unspecified; Z92.21 Personal history of antineoplastic chemotherapy; Z79.82 Long term (current) use of aspirin; Z79.899 Other long term (current) drug therapy
CPT/HCPCS: 36415; 80053; 85025; 99214

== ENCOUNTER 2021-07-01 12:24 | Outpatient (CLI) | payer OTHER, SELFPAY ==
--- NOTE | 2021-07-01 12:28 | US_ITS ---
WS: [email or web address] RENAL ULTRASOUND HISTORY: bladder cancer COMPARISON: CT 04/24/2021 TECHNIQUE: 2-D and color Doppler imaging of the kidney submitted. Right kidney: 11.4 cm x 4.7 cm x 5.6 cm. Normal size kidney. There is an area of cortical scarring in the mid to upper kidney. There is a smal l cyst anteriorly with a maximum diameter 1.5 cm. The solid mass described exophytic from the lateral kidney is not definitely identified. There is a small cyst in the same location measuring 1.5 x 1.2 x 1.2 cm. Left kidney: 12.0 cm x 5.4 cm x 5.8 cm. Multiple small cysts. The largest exophytic from the mid kidney measures 1.7 x 1.8 x 1.8 cm. Aorta: Poorly visualized. No aneurysm. Urinary Bladder: Prior cystoprostatectomy. US/US renal BI* [id number] IMPRESSION: 1. Bilateral renal cysts are identified. 2. No solid mass identified within the RIGHT kidney. There is a cyst in the ex pected location of the solid mass described likely by CT. Recommend additional follow-up by CT imaging in 6 months to document stability.
== END 2021-07-01 12:25 | disposition home or self-care (01) ==
LOC: RAD 12:26
PROVIDERS: PCP Family Medicine; Visit Provider Urology
DX: C67.9 Malignant neoplasm of bladder, unspecified (principal); Q61.02 Congenital multiple renal cysts
CPT/HCPCS: 76770

== ENCOUNTER → 2022-02-12 10:10 | Outpatient (BNVA) | payer OTHER, SELFPAY | PROVIDERS: PCP Family Medicine; Visit Provider Internal Medicine Medical Oncology | DX: C67.8 Malignant neoplasm of overlapping sites of bladder (principal) | CPT/HCPCS: 80053; 85025 ==

== ENCOUNTER 2022-02-18 13:22 | Oncology outpatient (recurring) (ONCR) | payer OTHER, SELFPAY | END 2022-03-19 23:59 | disposition home or self-care (01) | LOC: ONCMED 13:24 | PROVIDERS: PCP Family Medicine; Referring Provider Urology; Visit Provider Nurse Practitioner Family | DX: Z08 Encounter for follow-up examination after completed treatment for malignant neoplasm (principal); Z85.51 Personal history of malignant neoplasm of bladder; N28.89 Other specified disorders of kidney and ureter; Z92.21 Personal history of antineoplastic chemotherapy; Z87.891 Personal history of nicotine dependence | CPT/HCPCS: 99214 ==

== ENCOUNTER 2022-03-10 12:13 | Outpatient (CLI) | payer OTHER, SELFPAY ==
--- NOTE | 2022-03-10 12:23 | XR_ITS ---
WS: [email or web address] Exam: XR chest 2V* [id number] Date/Time of Exam: 03/10/2022 12:50 PM Reason For Exam: bladder cancer Comparison 03/06/2020. The lungs are fully expanded and clear. Unremarkable cardiomediastinal silhouette for technique. No p leural effusions. Bony structures are intact. Degenerative change and spondylosis of the dorsal spine . XR/XR chest 2V* [id number] IMPRESSION: 1. No acute cardiopulmonary finding. Stable.
== END 2022-03-10 12:14 | disposition home or self-care (01) ==
LOC: RAD 12:17
PROVIDERS: PCP Family Medicine; Visit Provider Family Medicine
DX: C67.9 Malignant neoplasm of bladder, unspecified (principal); C67.8 Malignant neoplasm of overlapping sites of bladder; N52.32 Erectile dysfunction following radical cystectomy; Z85.51 Personal history of malignant neoplasm of bladder; N28.89 Other specified disorders of kidney and ureter
CPT/HCPCS: 71046; 99213

== ENCOUNTER 2022-08-25 07:46 | Outpatient (CLI) | payer OTHER, SELFPAY ==
--- NOTE | 2022-08-25 08:00 | CT_ITS ---
WS: [email or web address] EXAMINATION: CT chest abd pel w con* REASON FOR EXAM: surveillance bladder cancer history COMPARISON: 04/24/2021. IV CONTRAST ADMINISTERED: Omnipaque 350 95 ml TOTAL EXAM DLP: 1821.[address] scans at [facility] use at least one of these dose optimization techniques: automat ed exposure control; mA and/or kV adjustment per patient size (includes targeted exams where dose is matched to clinical indication); or iterative reconstruction. FINDINGS: Chest CT: No pulmonary mass or nodule. No adenopathy. Heart size is normal. Normal aorta and pulmonary artery. No pericardial pleural effusions. Small hiatal hernia. Well-rounded subcutaneous soft tissue mass posterior to the LEFT scapula measures 2.7 x 3.1 cm. This is likely a sebaceous cyst and stable. Stable sclerotic focus in the L1 vertebral body. Abdomen CT: 2 hepatic cysts are stable. The largest along the anterior surface of the liver is 13 mm. There is an additional cyst posterior to the main portal vein. No metastatic disease. Gallbladder, pancreas and spleen and adrenal glands are negative. Cortical thinning upper pole RIGHT kidney. Stable cortical cyst anteriorly. There is a solid slightly lobulated mass extending laterally from the mid kidney with a maximum diameter of 18 mm. This mass has slowly increased in size over the past several studies and is more lobulated. LEFT kidney normal size with a few cortical cysts and focal area of scarring in the lower pole. RIGHT lower quadrant ileostomy. Patient is status post radical cystoprostatectomy with ileal conduit. Pelvic CT: No ascites or free fluid in the pelvis. Postsurgical changes are noted. There are a few very small stable lymph nodes in the inguinal region. Again noted is mild dilatation of the proximal RIGHT common iliac artery measuring 1.8 cm. No destructive osteoblastic or osteolytic lesions. Sclerotic bone island in the RIGHT femoral head. CT/CT chest abd pel w con* IMPRESSION: 1. No evidence for metastatic disease to the chest, abdomen or pelvis. 2. Small lobulated mass from mid lateral RIGHT kidney has hypodense and hyperde nse components. This most likely represents a partially hemorrhagic cyst. It mansfield s remained stable since previous study or perhaps slightly decreased in size no w measuring approximately 14 mm. 3. Status post cystoprostatectomy with ileal conduit. No renal obstruction. 4. Small hiatal hernia. 5. Bilateral renal cysts with cortical thinning upper pole on the RIGHT and low er pole on the LEFT.
[2022-08-25 08:01] LABS: Basophils # 0.2 10^3/uL (0.0-0.1); Basophils % 2.1 %; Eosinophils # 0.3 10^3/uL (0.0-0.8); Eosinophils % 3.2 %; Hematocrit 42.8 % (42.0-52.0); Lymphocytes # 1.5 10^3/uL (0.8-4.8); Lymphocytes % 16.7 %; Mean Corpuscular HGB Conc 32.7 g/dL (30.0-36.0); Mean Corpuscular Hemoglobin 27.5 pg (28.0-34.0); Mean Corpuscular Volume 83.9 fl (80-94); Mean Platelet Volume 9.4 fL (7.4-10.4); Monocytes # 0.7 10^3/uL (0.2-0.9); Monocytes % 8.2 %; Neutrophils # 6.19 10^3/uL (1.8-7.7); Neutrophils % 68.5 %; Nucleated Red Blood Cells % 0.2 %; Platelet Count 780 10^3/cmm (130-400); Red Cell Distribution Width 14.7 % (12.1-15.1)
[2022-08-25 08:18] LABS: Alanine Aminotransferase 15 U/L (0-41); Albumin Level 4.2 g/dL (3.5-5.2); Alkaline Phosphatase 72 U/L (40-130); Anion Gap 12.8 (5-19); Aspartate Amino Transferase 18 U/L (0-40); Blood Urea Nitrogen 17 mg/dL (8-23); Calcium 9.5 mg/dL (8.5-10.5); Carbon Dioxide 24 mmol/L (22-29); Chloride 106 mmol/L (98-107); Globulin 2.5 g/dL (1.3-4.6); Glomerular Filtration Rate 74.5 mL/min (90-130); Glucose 112 mg/dL (65-115); Osmolality Calculated 290 mOsm/kg (285-295); Potassium 3.8 mmol/L (3.5-5.1); Sodium 139 mmol/L (136-145); Total Bilirubin 0.6 mg/dL (0.15-1.2); Total Protein 6.7 g/dL (6.6-8.7)
[2022-08-25] MEDS: iohexol 350 mg/mL 500 mL Btl (per mL) IV (08:47)
== END 2022-08-25 07:47 | disposition home or self-care (01) ==
LOC: RAD 07:47
PROVIDERS: PCP Family Medicine; Visit Provider Nurse Practitioner Family
DX: C67.8 Malignant neoplasm of overlapping sites of bladder (principal)
CPT/HCPCS: 36415; 71260; 74177; 80053; 85025; 99213; Q9967

== ENCOUNTER 2022-08-25 12:54 | Oncology outpatient (recurring) (ONCR) | payer OTHER, SELFPAY | END 2022-09-19 23:59 | disposition home or self-care (01) | PROVIDERS: PCP Family Medicine; Referring Provider Urology; Visit Provider Nurse Practitioner Family | DX: Z08 Encounter for follow-up examination after completed treatment for malignant neoplasm (principal); Z85.51 Personal history of malignant neoplasm of bladder; Z90.89 Acquired absence of other organs; Z90.6 Acquired absence of other parts of urinary tract; Z92.21 Personal history of antineoplastic chemotherapy; N28.89 Other specified disorders of kidney and ureter | CPT/HCPCS: 99213 ==

== ENCOUNTER 2023-02-25 11:49 | Oncology outpatient (recurring) (ONCR) | payer OTHER, SELFPAY ==
[2023-02-25 12:25] LABS: Basophils # 0.2 10^3/uL (0.0-0.1); Basophils % 1.9 %; Eosinophils # 0.4 10^3/uL (0.0-0.8); Eosinophils % 3.3 %; Hematocrit 42.9 % (42.0-52.0); Hemoglobin 13.9 g/dL (11.7-16.6); Lymphocytes # 1.6 10^3/uL (0.8-4.8); Lymphocytes % 15.4 %; Mean Corpuscular HGB Conc 32.4 g/dL (30.0-36.0); Mean Corpuscular Hemoglobin 27.6 pg (28.0-34.0); Mean Corpuscular Volume 85.1 fl (80-94); Mean Platelet Volume 9.3 fL (7.4-10.4); Monocytes # 0.8 10^3/uL (0.2-0.9); Neutrophils % 69.7 %; Nucleated Red Blood Cells % 0 %; Platelet Count 762 10^3/cmm (130-400); Red Blood Count 5.04 10^6/uL (4.1-5.3); Red Cell Distribution Width 15.4 % (12.1-15.1); White Blood Count 10.5 10^3/uL (4.0-10.0)
[2023-02-25 12:48] LABS: Alanine Aminotransferase 17 U/L (0-41); Albumin Level 4.2 g/dL (3.5-5.2); Alkaline Phosphatase 70 U/L (40-130); Anion Gap 14.3 (5-19); Aspartate Amino Transferase 18 U/L (0-40); Blood Urea Nitrogen 16 mg/dL (8-23); Carbon Dioxide 23 mmol/L (22-29); Chloride 106 mmol/L (98-107); Globulin 2.3 g/dL (1.3-4.6); Glomerular Filtration Rate 74.5 mL/min (90-130); Glucose 88 mg/dL (65-115); Osmolality Calculated 289 mOsm/kg (285-295); Potassium 4.3 mmol/L (3.5-5.1); Sodium 139 mmol/L (136-145); Total Bilirubin 0.5 mg/dL (0.15-1.2); Total Protein 6.5 g/dL (6.6-8.7)
[2023-02-25 12:57] VITALS: BP 118/74; PULSE 86; RESP 16; TEMP 37.1; O2SAT 97
[2023-02-25 13:25] LABS: Vitamin B12 622 pg/mL (232-1245)
--- NOTE | 2023-02-25 15:06 | XR_ITS ---
WS: [email or web address] Chest 2 views, 02/25/2023 Clinical Data: bladder cancer Comparison: Two-view chest, 03/10/2022 Findings: No nodules, masses or effusions are seen. The heart is normal. The pulmonary vascularity is not increased. No pneumonia or pneumothorax is seen. The aortic arch and descending thoracic aorta s how tortuosity. The diaphragms are flattened. XR/XR chest 2V* [id number] Impression: Atherosclerosis and hyperinflation.
[2023-02-25 15:18] LABS: Ferritin 47 ng/mL (30-400); Iron 78 ug/dL (59-158); Total Iron Binding Capacity 371 mcg/dl; Unsaturated Iron Binding 293 ug/dL (112-347)
== END 2023-03-19 23:59 | disposition home or self-care (01) ==
PROVIDERS: Nurse Practitioner Family; PCP Family Medicine; Referring Provider Urology; Visit Provider Nurse Practitioner Family
DX: Z08 Encounter for follow-up examination after completed treatment for malignant neoplasm (principal); Z85.51 Personal history of malignant neoplasm of bladder; Z90.89 Acquired absence of other organs; Z90.6 Acquired absence of other parts of urinary tract; Z92.21 Personal history of antineoplastic chemotherapy
CPT/HCPCS: 36415; 71046; 80053; 82607; 82728; 83540; 83550; 85025; 99214

== ENCOUNTER 2023-03-02 14:44 | Outpatient (CLI) | payer OTHER, SELFPAY ==
--- NOTE | 2023-03-02 15:00 | US_ITS ---
WS: [email or web address] RENAL ULTRASOUND HISTORY: history of bladder cancer COMPARISON: 07/01/2021 TECHNIQUE: 2-D and color Doppler imaging of the kidney submitted. Right kidney: 10.1 cm x 5.8 cm x 6.2 cm. Cortex: 1.6 cm Normal size kidney with no hydronephrosis. Cortical thinning upper pole. Simple cyst mid kidney measu res 1.4 x 1.6 x 1.6 cm. Additional simple cyst from the superior pole. Left kidney: 9.8 cm x 5.6 cm x 5.5 cm. Cortex: 1.6 cm Normal size kidney. Cortical cyst mid to lower kidney measures 3.2 x 1.7 x 3.0 cm. No solid mass. Aorta: Normal. Urinary Bladder: Prior cystoprostatectomy. US/US renal BI* [id number] IMPRESSION: 1. No renal obstruction or solid mass. 2. Bilateral renal cysts. 3. Focal stable scar upper pole RIGHT kidney.
== END 2023-03-02 14:45 | disposition home or self-care (01) ==
LOC: RAD 14:48
PROVIDERS: PCP Family Medicine; Visit Provider Nurse Practitioner Family
DX: Z85.51 Personal history of malignant neoplasm of bladder (principal); Z90.6 Acquired absence of other parts of urinary tract; Z90.79 Acquired absence of other genital organ(s); Q61.02 Congenital multiple renal cysts
CPT/HCPCS: 76770

== ENCOUNTER → 2023-03-11 09:08 | Outpatient (BNVA) | payer OTHER, SELFPAY | PROVIDERS: PCP Family Medicine; Visit Provider Urology | DX: C67.8 Malignant neoplasm of overlapping sites of bladder (principal); Z85.51 Personal history of malignant neoplasm of bladder | CPT/HCPCS: 99213 ==

== ENCOUNTER 2023-05-14 08:21 | Outpatient (CLI) | payer OTHER, SELFPAY ==
--- NOTE | 2023-05-14 08:28 | USCV_ITS ---
Tejinder Crook Age: 67 Gender: M : 1955 Exam Date: 05/14/2023 09:01 Ordering Phys: María Esquivel MD Technologist: Exam Location: [facility] [place] Indication: aaa HISTORY: Diameter (cm) AP x Transverse x Length Velocity (cm/s) Waveform Prox Aorta: 1.90 x 2.13 x 76.20 Triphasic Mid Aorta: 2.10 x 2.35 x 66.50 Triphasic Distal Aorta: 2.09 x 2.20 x 108.20 Triphasic Right Iliac Prox: 1.23 x 1.51 x 103.10 Triphasic Left Iliac Prox: 1.26 x 1.42 x 63.80 Triphasic Stent Prox Landing x x Aneurysmal Sac Max x x Lt Lat Sac Dim Rt Lat Sac Dim Stent Dist Landing x x Right Iliac Stent x x Left Iliac Stent x x Right Renal Art Left Renal Art FINDINGS: CONCLUSIONS No evidence of abdominal aortic or bilateral iliac aneurysm. Angel Bo MD (Electronically Signed) Final Date: 14 May 2023 11:03 S
== END 2023-05-14 08:22 | disposition home or self-care (01) ==
PROVIDERS: PCP Family Medicine; Visit Provider Family Medicine
DX: I71.40 Abdominal aortic aneurysm, without rupture, unspecified (principal)
CPT/HCPCS: 76706

== ENCOUNTER 2023-08-25 08:06 | Outpatient (CLI) | payer OTHER, SELFPAY ==
--- NOTE | 2023-08-25 08:18 | CT_ITS ---
WS: [email or web address] CT ABDOMEN AND PELVIS WITH CONTRAST HISTORY: HX OF BLADDER CANCER TECHNIQUE: Imaging performed of the abdomen and pelvis with IV contrast. Single phase imaging of the abdomen. Coronal and sagittal reformats are submitted. All CT scans at [facility] use at [address] one of these dose optimization techniques: automated exposure control; mA and/or kV adjustment per patient size (includes targeted exams where dose is matched to clinical indication); or iterative re construction. IV CONTRAST: Omnipaque 350; 100 mL IV. Oral contrast: Yes. DLP: 581.00 mGy.cm COMPARISON: 08/25/2022 and 04/24/2021 Lower thorax: Lung bases are clear. Heart is normal size. Small hiatal hernia. Liver/biliary system: Normal size liver. There are a few scattered very tiny hypodensities which are too small to characterize. None of these are enlarging. No bile duct dilatation. Gallbladder: Normal. No gallstones or wall thickening. No pericholecystic fluid. Pancreas: Normal size pancreas and pancreatic duct. No adjacent inflammation. Spleen: Normal size spleen. No mass or infarct. Adrenal glands: Normal. Right kidney: Reidentified is a hyperdense mass exophytic from the mid RIGHT kidney measuring 13 mm. This has been previously described on multiple prior studies and not significantly increasing. There are additional cortical cyst. Focal cortical thinning in the superior pole. No obstruction. Left kidney: Normal size kidney with several stable cysts. Cortical thinning in the lower pole. Aorta: Mild atherosclerosis with no aneurysm. Lymphadenopathy: None. Free fluid: None. GI tract: No interval change. No obstruction. Mild constipation. Abdominal wall: Thinning of the linea alba. Pelvis: Patient is status post cystoprostatectomy. RIGHT lower quadrant ileostomy. Ileal conduit cond uit appears unchanged. There is no obstruction of either kidney. Bones: Unremarkable. IMPRESSION: 1. Status post cystoprostatectomy. Stable RIGHT lower quadrant ileostomy. No renal obstruction. 2. No ascites or adenopathy. 3. Bilateral renal cyst. There is an additional hyperdense exophytic mass from the RIGHT kidney whic h has been present on prior studies and not increasing in size. Low-grade neoplasm versus hemorrhagic or complex cyst. Stable over multiple prior years. 4. Stable renal cortical scarring.
[2023-08-25] MEDS: iohexol 350 mg/mL 500 mL Btl (per mL) PO (09:33)
[2023-08-25 09:40] LABS: Blood Urea Nitrogen 12 mg/dL (8-23); Glomerular Filtration Rate 83.9 mL/min (90-130)
[2023-08-25] MEDS: iohexol 350 mg/mL 500 mL Btl (per mL) IV (09:46)
== END 2023-08-25 08:07 | disposition home or self-care (01) ==
LOC: RAD 08:07
PROVIDERS: PCP Family Medicine; Visit Provider Nurse Practitioner Family
DX: Z85.51 Personal history of malignant neoplasm of bladder (principal); Z90.6 Acquired absence of other parts of urinary tract; N28.89 Other specified disorders of kidney and ureter; Z93.2 Ileostomy status
CPT/HCPCS: 74177; 82565; 84520; 99214; Q9967

== ENCOUNTER 2023-08-25 08:06 | Oncology outpatient (recurring) (ONCR) | payer OTHER, SELFPAY ==
[2023-08-25 10:45] VITALS: BP 142/91; PULSE 96; RESP 16; TEMP 37.1; O2SAT 96
[2023-08-25 11:07] LABS: Basophils # 0.2 10^3/uL (0.0-0.1); Basophils % 2.4 %; Eosinophils # 0.3 10^3/uL (0.0-0.8); Eosinophils % 2.8 %; Hematocrit 43.5 % (37-53); Lymphocytes # 1.5 10^3/uL (0.8-4.8); Lymphocytes % 14.7 %; Mean Corpuscular HGB Conc 32.9 g/dL (30-55); Mean Corpuscular Volume 88.2 fl (82-101); Mean Platelet Volume 9.7 fL (7.4-10.4); Monocytes # 0.7 10^3/uL (0.2-0.9); Monocytes % 6.7 %; Neutrophils # 7.03 10^3/uL (1.8-7.7); Neutrophils % 70.4 %; Nucleated Red Blood Cells % 0.3 %; Platelet Count 697 10^3/cmm (157-399); Red Blood Count 4.93 10^6/uL (3.85-5.65); Red Cell Distribution Width 15.8 % (12.1-15.1); White Blood Count 9.99 10^3/uL (3.29-11.43)
[2023-08-25 11:22] LABS: Alanine Aminotransferase 26 U/L (0-41); Albumin Level 4.3 g/dL (3.5-5.2); Alkaline Phosphatase 78 U/L (40-130); Anion Gap 14.3 (5-19); Aspartate Amino Transferase 24 U/L (0-40); Blood Urea Nitrogen 15 mg/dL (8-23); Carbon Dioxide 25 mmol/L (22-29); Chloride 101 mmol/L (98-107); Globulin 2.4 g/dL (1.3-4.6); Glomerular Filtration Rate 66.6 mL/min (90-130); Glucose 167 mg/dL (65-115); Osmolality Calculated 289 mOsm/kg (285-295); Potassium 3.3 mmol/L (3.5-5.1); Sodium 137 mmol/L (136-145); Total Bilirubin 0.7 mg/dL (0.15-1.2); Total Protein 6.7 g/dL (6.6-8.7)
[2023-08-25 14:29] LABS: Ferritin 44 ng/mL (30-400); Iron 96 ug/dL (59-158); Percent Saturation 27.5 % (20-50); Total Iron Binding Capacity 349 mcg/dl; Unsaturated Iron Binding 253 ug/dL (112-347)
== END 2023-09-19 23:59 | disposition home or self-care (01) ==
LOC: RAD 08:07 → ONCMED 10:35
PROVIDERS: Nurse Practitioner Family; PCP Family Medicine; Referring Provider Urology; Visit Provider Nurse Practitioner Family
DX: Z08 Encounter for follow-up examination after completed treatment for malignant neoplasm (principal); Z85.51 Personal history of malignant neoplasm of bladder; N28.89 Other specified disorders of kidney and ureter; Z90.89 Acquired absence of other organs; Z90.6 Acquired absence of other parts of urinary tract; Z92.21 Personal history of antineoplastic chemotherapy; D64.9 Anemia, unspecified
CPT/HCPCS: 36415; 80053; 82728; 83540; 83550; 85025

== ENCOUNTER 2023-12-24 11:45 | Outpatient (CLI) | payer OTHER, SELFPAY ==
--- NOTE | 2023-12-24 12:00 | US_ITS ---
WS: [email or web address] RENAL ULTRASOUND HISTORY: history of bladder cancer, lobulated renal cyst COMPARISON: 03/02/2023 TECHNIQUE: 2-D and color Doppler imaging of the kidney submitted. Right kidney: 9.7 cm x 4.5 cm x 1.1 cm. Cortex: 1.0 cm Normal size kidney Chronic focal scar upper pole RIGHT kidney is similar to prior studies. Simple cyst RIGHT kidney lisa ures 1.1 x 1.5 x 1.6 cm. Cyst near the superior pole. No additional cystic or solid mass identified i n the RIGHT kidney. Left kidney: 10.7 cm x 5.2 cm x 5.3 cm. Cortex: 1.0 cm Normal size kidney. Exophytic cyst from the mid kidney measures 1.8 x 2.2 x 2.0 cm. Additional small cluster of cysts also identified extending from the lateral kidney. No solid mass. Aorta: Normal. Urinary Bladder: Prior cystoprostatectomy. IMPRESSION: 1. No renal obstruction. 2. Bilateral cortical cyst within each kidney. No solid mass identified. 3. Focal scar upper pole RIGHT kidney is stable.
== END 2023-12-24 11:46 | disposition home or self-care (01) ==
LOC: RAD 11:48
PROVIDERS: PCP Family Medicine; Visit Provider Nurse Practitioner Family
DX: C67.8 Malignant neoplasm of overlapping sites of bladder (principal); N28.1 Cyst of kidney, acquired
CPT/HCPCS: 76770

== ENCOUNTER 2024-03-06 16:45 | Oncology outpatient (recurring) (ONCR) | payer OTHER, SELFPAY ==
[2024-02-23 13:15] LABS: Basophils # 0.2 10^3/uL (0.0-0.1); Basophils % 2.2 %; Eosinophils # 0.3 10^3/uL (0.0-0.8); Eosinophils % 2.8 %; Hematocrit 39.3 % (37-53); Lymphocytes # 1.5 10^3/uL (0.8-4.8); Lymphocytes % 15.1 %; Mean Corpuscular HGB Conc 33.3 g/dL (30-55); Mean Corpuscular Volume 86.9 fl (82-101); Mean Platelet Volume 9.7 fL (7.4-10.4); Monocytes # 0.9 10^3/uL (0.2-0.9); Neutrophils # 6.58 10^3/uL (1.8-7.7); Neutrophils % 66.6 %; Nucleated Red Blood Cells # 0.1 /100WBC; Nucleated Red Blood Cells % 1.1 %; Platelet Count 560 10^3/cmm (157-399); Red Blood Count 4.52 10^6/uL (3.85-5.65); Red Cell Distribution Width 16.1 % (12.1-15.1); White Blood Count 9.88 10^3/uL (3.29-11.43)
[2024-02-23 13:32] LABS: Alanine Aminotransferase 23 U/L (0-41); Alkaline Phosphatase 76 U/L (40-130); Anion Gap 14.5 (5-19); Aspartate Amino Transferase 19 U/L (0-40); Blood Urea Nitrogen 16 mg/dL (8-23); Calcium 9.1 mg/dL (8.5-10.5); Carbon Dioxide 23 mmol/L (22-29); Chloride 107 mmol/L (98-107); Globulin 2.6 g/dL (1.3-4.6); Glomerular Filtration Rate 66.6 mL/min (90-130); Glucose 110 mg/dL (65-115); Osmolality Calculated 294 mOsm/kg (285-295); Potassium 3.5 mmol/L (3.5-5.1); Sodium 141 mmol/L (136-145); Total Bilirubin 0.9 mg/dL (0.15-1.2); Total Protein 6.6 g/dL (6.6-8.7)
--- NOTE | 2024-03-06 16:45 | CT_ITS ---
WS: [email or web address] CT CHEST, ABDOMEN AND PELVIS WITH CONTRAST HISTORY: bladder cancer TECHNIQUE: Contiguous 5 mm axial imaging performed through the chest, abdomen and pelvis with IV cont rast, oral contrast has been provided. Coronal and sagittal reformats chest. Coronal and sagittal ref ormats through the abdomen and pelvis. All CT scans at [facility] use at least one of these d ose optimization techniques: automated exposure control; mA and/or kV adjustment per patient size (in cludes targeted exams where dose is matched to clinical indication); or iterative reconstruction. CONTRAST: Omnipaque 350; 100 mL IV. DLP: 1210.22 mGy.cm COMPARISON: CT abdomen and pelvis 08/25/2023, CT chest, abdomen and pelvis 08/25/[address]: Lungs are clear. No metastatic mass or nodule. No pneumonia. No pericardial or pleural effu sions. Minimal atherosclerosis thoracic aorta. Normal size pulmonary artery. No mediastinal or hilar adenopathy. There is oral contrast within majority of the esophagus. This is either related to dysmot ility and incomplete clearing or reflux disease. Normal chest wall. Abdomen CT: Normal size liver. Hepatic cyst 1.2 x 0.8 cm just posterior to the main portal vein. Norm al enhancement of the portal vein. Normal gallbladder. Normal pancreas. Spleen is very slightly enlar ged measuring 14.2 cm in length. There is a rounded contour of the spleen and slight loss of the norm al central concavity. Similar to the several most recent exams although slightly increased over the l ast several years. There are additional splenic varicosities noted in the LEFT upper abdomen. No adre nal mass. Mild atherosclerosis abdominal aorta. No aneurysm celiac axis is mildly dilated measuring u p to 13 mm. Mild atherosclerosis SMA. RIGHT kidney: Normal size kidney. Focal cortical scarring with thinning upper pole. Simple cyst upper pole 1.3 x 1.9 cm. There is an additional exophytic nodule from the mid kidney measuring 1.0 x 1.0 c m which has not changed in size but is of increased density. Low-grade renal cell neoplasm or complex cyst remain within the differential. Indeterminate mass has been present since at least 12/20/2018 wit hout increase in size. LEFT kidney: Normal size with no obstruction. There are 2 cystic masses extending from the lateral mi d kidney with the largest measuring 2.5 x 2.0 cm. No increase in size. Patient is status post cystoprostatectomy with ileal conduit. Neither ureter is dilated. Ostomy site over the mid RIGHT abdomen is unchanged. No ascites or adenopathy. No colon obstruction. No colitis. Pelvic CT: No free fluid. Postsurgical changes are noted within the pelvis. Prostate gland and urinar y bladder have been removed surgically. Stable sclerotic focus RIGHT femoral head. CT/CT chest abdpel w/*[id number] IMPRESSION: 1. Status post cystoprostatectomy with ileal conduit. There is no renal obstru ction. There has been no adverse change in the postoperative site. 2. No metastatic disease in the chest, abdomen or pelvis. 3. Reidentified is the indeterminant high density mass in the central RIGHT ki dney with no increase in size. Stable since at least 2019. 4. Spleen continues to be slightly increased in size with splenic varices. 5. 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 No change . 6. Status post resection of the urinary bladder and prostate gland. 7. Oral contrast filling nearly the entire esophagus. This may be due to esoph ageal dysmotility and incomplete clearing or reflux disease.
[2024-03-06] MEDS: iohexol 350 mg/mL 500 mL Btl (per mL) IV (17:23)
[2024-03-06] MEDS: iohexol 350 mg/mL 500 mL Btl (per mL) PO (17:23)
== END 2024-03-19 23:59 | disposition home or self-care (01) ==
LOC: RAD 03-07 → ONCMED 04-04 06:16
PROVIDERS: Nurse Practitioner Family; PCP Family Medicine; Referring Provider Urology; Visit Provider Nurse Practitioner Family
DX: Z53.9 Procedure and treatment not carried out, unspecified reason (principal); C67.8 Malignant neoplasm of overlapping sites of bladder; N28.89 Other specified disorders of kidney and ureter; Z90.6 Acquired absence of other parts of urinary tract; Z90.79 Acquired absence of other genital organ(s)
CPT/HCPCS: 36415; 71260; 74177; 80053; 85025; 99214; Q9967

== ENCOUNTER 2025-03-02 10:40 | Outpatient (CLI) | payer OTHER, SELFPAY ==
--- NOTE | 2025-03-02 10:43 | CTR_ITS ---
PROCEDURE INFORMATION: Exam: CT Abdomen And Pelvis Without And With Contrast Exam date and time: 03/02/2025 11:57 AM Age: 69 years old Clinical indication: Condition or disease; Cancer; Other: Bladder; Prior surgery; Surgery date: 6+ months; Additional info: Cancer surveillance TECHNIQUE: Imaging protocol: Computed tomography of the abdomen and pelvis without and with contrast. Radiation optimization: All CT scans at this facility use at least one of these dose optimization techniques: automated exposure control; mA and/or kV adjustment per patient size (includes targeted exams where dose is matched to clinical indication); or iterative reconstruction. Contrast material: OMNI 350; Contrast volume: 100 ml; Contrast route: INTRAVENOUS (IV); COMPARISON: CT chest abdpel w/*[id number] 03/06/2024 4:56 PM RADIATION DOSE METRICS: Total DLP (mGy-cm): 1361.23 FINDINGS: Diaphragm: Small hiatal hernia. Liver: Normal. No mass. Gallbladder and biliary ducts: Normal. No calcified stones. No ductal dilation. Pancreas: Normal. No ductal dilation. Spleen: 18 cm splenomegaly. Adrenal glands: Normal. No mass. Kidneys and ureters: Bilateral renal cysts. On the right there is a hyperdense cyst or mass measuring 12 mm which is unchanged since prior studies. Stomach and bowel: Right mid abdominal ileostomy. Appendix: No evidence of appendicitis. Intraperitoneal space: Unremarkable. No free air. No significant fluid collection. Vasculature: Unremarkable. No abdominal aortic aneurysm. Lymph nodes: Unremarkable. No enlarged lymph nodes. Urinary bladder: Cystectomy. Reproductive: Unremarkable as visualized. Bones/joints: Unremarkable. No acute fracture. Soft tissues: Unremarkable. CT/CT abdomen pelvis wo/w [id number] IMPRESSION: 1. No evidence of subdiaphragmatic neoplastic disease. 2. No significant change. COMMENTS: Consistent with the [employer]'s Incidental Findings Committee white paper (J Am Charlene Radiol 2018): Any incidental renal lesion less than 1 cm or classified as too small to characterize, or any incidental cystic renal lesion characterized as simple-appearing, is likely benign. No follow-up imaging is recommended for these lesions per consensus recommendations based on imaging criteria.
[2025-03-02] MEDS: iohexol 350 mg/mL 500 mL Btl (per mL) IV (11:42)
[2025-03-02] MEDS: iohexol 350 mg/mL 500 mL Btl (per mL) PO (11:43)
[2025-03-02 11:51] LABS: Blood Urea Nitrogen 23 mg/dL (8-23); Glomerular Filtration Rate 66.4 mL/min (90-130)
== END 2025-03-02 10:41 | disposition home or self-care (01) ==
LOC: RAD 10:42
PROVIDERS: PCP Family Medicine; Visit Provider Family Medicine
DX: Z01.89 Encounter for other specified special examinations (principal); K44.9 Diaphragmatic hernia without obstruction or gangrene; R16.1 Splenomegaly, not elsewhere classified; N28.1 Cyst of kidney, acquired; R93.421 Abnormal radiologic findings on diagnostic imaging of right kidney; Z98.890 Other specified postprocedural states
CPT/HCPCS: 74178; 82565; 84520

== ENCOUNTER 2025-04-23 09:46 | Outpatient (CLI) | payer OTHER, SELFPAY ==
[2025-04-23 10:07] VITALS: BMI 30.4
--- NOTE | 2025-04-23 10:09 | NMCV_ITS ---
NM elvin perf SPECT r/s* [id number] Tejinder Crook Age: 69 Gender: M : 1955 Exam Date: 04/23/2025 10:48 Ordering Phys: María Esquivel MD Technologist: ANDREA Lopez Exam Location: [facility] Indications: cp STRESS TEST Please see separate stress test report in [facility] for full findings IMAGE PROTOCOL Stress/Rest 1 Exercise Day Radiopharmaceutical Dose (mCi) Administration Site Administered by Rest: Tc-99m 10.4 IV Telma Almaraz, ADMISSIONS DIRECTOR Sestamibi Stress:Tc-99m 32.7 IV Telma Powellgle, ADMISSIONS DIRECTOR Sestamibi Rest: 23-Apr-2025 60 Discovery 630 Stress: 23-Apr-2025 15 Discovery 630 Radiopharmaceutical was injected at 85 % maximum heart rate. Images obtained in supine and prone position. SPECT RESULTS Technical Quality: Good Raw Data Analysis: Normal Image Corrections: No attenuation or motion correction applied Summed Stress Score: 5 Summed Rest Score: 6 Summed Difference Score: 1 PERFUSION FINDINGS Mild to moderate degree of minimal to moderately decreased tracer uptake involving the basal and mid inferolateral, mid inferior wall segments. Sublingual reversibility was noted in the mid inferior wall region with the supine imaging. However with the prone imaging, no significant reversibility was noted. FUNCTIONAL RESULTS (calculated via Gated SPECT) Stress Image LV EF (%): 79 Stress EDV (mL):78 TID: 1.02 Stress ESV (mL):16 FUNCTIONAL FINDINGS: Segmental wall motion analysis revealing no gross wall motion abnormalities IMPRESSIONS 1. Myocardial perfusion imaging revealing mild to moderate area of persistent decreased tracer uptake involving the basal and mid inferolateral and mid inferior wall region, suggesting myocardial scarring versus attrition artifact. Subtle area of inconsistent reversibility, most likely artifactual 2. Normal LV ejection fraction of 79% 3. LV wall motion analysis revealing no gross wall motion abnormalities. 4. Normal LV volume No significant wall ischemia, based on the above findings No similar previous studies are available for comparison Dr Meagan Trimble MD [facility] (Electronically Signed) Final Date: 23 April 2025 16:29 S
--- NOTE | 2025-04-23 10:09 | ECG_ITS ---
Anvato Test Date: 2025-04-23 Pat Name: Tejinder Crook Department: Room: Gender: Male [employer] Operator: : 1955 Requested By: María Esquivel Order Number: [id number] Benavides MD: Meagan Trimble M.D. Interpretive Statements Lung unchanged pre/post procedure; Intraprocedure shortess of breath; Symptoms resoled by discharge PROCEDURE: The baseline electrocardiogram showed normal sinus rhythm with normal ST-Ts. At the baseline, the patient's blood pressure was 119/87 mm Hg with a heart rate of 78. The patient exercised for 7 minutes and 7 seconds on a standard Evans protocol. Patient attained a maximum heart rate of 133 beats per minute(88% of the maximum predicted heart rate) with a blood pressure at the peak exercise of 155/88 mm Hg. The EKG at the peak exercise revealed no significant changes. Patient did not have any chest pain or any significant arrhythmis with the exercise. Occasional PVCs were noted during the exercise Sestamibi was injected 1 minute prior to the peak exercise During the recovery phase, there were no new changes. Blood pressure at the end of the recovery phase was 158/92 mm Hg with a heart rate of 94 per minute. CONCLUSION: 1. No significant EKG changes with the [treadmill exercise 2. No exercise-induced chest pain or cardiac arrhythmia 3. Fair exercise tolerance, attained a maximum of 10.2 METs 4. Sestamibi/Sestamibi perfusion results pending; see separate report. Electronically Signed On 05-01-2025 10:53:18 CDT by Meagan Trimble M.D. [email or web address]
[2025-04-23 11:40] VITALS: BP 156/92; PULSE 96
== END 2025-04-23 09:47 | disposition home or self-care (01) ==
LOC: CDL 09:50
PROVIDERS: PCP Family Medicine; Visit Provider Family Medicine
DX: R06.00 Dyspnea, unspecified (principal); R07.9 Chest pain, unspecified; R94.39 Abnormal result of other cardiovascular function study; I49.8 Other specified cardiac arrhythmias; I49.3 Ventricular premature depolarization
CPT/HCPCS: 36415; 78452; 93017; A9500

== ENCOUNTER → 2025-05-24 14:50 | Outpatient (BNVA) | payer OTHER, SELFPAY | PROVIDERS: PCP Family Medicine; Visit Provider Nurse Practitioner Family | DX: D18.01 Hemangioma of skin and subcutaneous tissue (principal); L57.8 Other skin changes due to chronic exposure to nonionizing radiation; L57.0 Actinic keratosis | CPT/HCPCS: 17000; 99213 ==